=== PATIENT | female | born 1995 | race Caucasian/White ===

== ENCOUNTER 2021-02-16 09:00 | Emergency (ER) | payer SELFPAY ==
[2021-02-16] MEDS ORDERED: Lidocaine 2% PF 5 ML VIAL ONE (09:53)
[2021-02-16] MEDS ORDERED: Bacitracin 1 PK ONE (10:26)
== END 2021-02-16 10:35 | disposition home or self-care (01) ==
LOC: ERS 09:00
DX: L02.211 Cutaneous abscess of abdominal wall (principal); Z87.891 Personal history of nicotine dependence
CPT/HCPCS: 10060; J2001